=== PATIENT | male | born 1930 | race Caucasian/White ===

== ENCOUNTER 2017-05-25 21:25 | Emergency (ER) | payer MEDICARE ==
[~2017-05-25 21:25] MED LIST: ALPHAGAN P0.1 % OPH; ASA5GR PO; ASAB PO; ASABAYER PO; AZOPT OPH; DEXILANT DR PO; DILT-XR240 MG PO; ISORDIL10 PO; JANTOVEN1 MG PO; JANTOVEN2 MG PO; L20 PO; LIPITOR40 PO; LOM PO; LOP25 PO; LUMIGAN OPH; PACERONE200 MG PO; PR25 PO; PRIN5 PO; SYSTAN1 OP; SYSTANE OP; TOPXL25 PO; VITAMIN B-121000 MC1 SL; XALAT OPH
[2017-05-25 21:55] LABS: HEMATOCRIT 41.2 % (40.0-51.0); HEMOGLOBIN 13.9 g/dL (13.6-17.8); MEAN CORPUS HGB CONC 33.7 g/dL (32.0-36.0); MEAN PLATELET VOLUME 12.2 fL (9.2-13.0); RBC DISTRIBUTION WIDTH 14.3 % (12.0-16.0); RED CELL COUNT 4.63 10/6/uL (4.7-6.1)
[2017-05-25 21:57] LABS: ER CBC TAT 0 Hrs 08 Mins; MANUAL DIFF YES %; WHITE BLOOD CELLS 8.6 10/3/uL (4.5-10.5)
[2017-05-25 22:10] LABS: ALBUMIN 3.4 G/DL (3.5-5.0); ALKALINE PHOSPHATASE 81 U/L (45-117); BUN (BLOOD UREA NITROGEN) 12 MG/DL (6-23); CALCIUM, SERUM 8.5 MG/DL (8.5-10.4); CHLORIDE, SERUM 104 MMOL/L (96-112); CO2 (CARBON DIOXIDE) 26 MMOL/L (24-34); CREATININE 1.14 MG/DL (0.70-1.30); GFR AFRICAN AMERICAN 68 ML/MIN (>=60); GFR NON AFRICAN AMERICAN 59 ML/MIN (>=60); GLOBULIN 3.5 G/DL (2.5-4.1); GLUCOSE, SERUM 111 MG/DL (60-99); POTASSIUM, SERUM 4.2 MMOL/L (3.5-5.3); SGOT(AST) 12 U/L (5-40); SGPT(ALT) 18 U/L (5-65); SODIUM, SERUM 137 MMOL/L (135-148); TOTAL BILIRUBIN 0.6 MG/DL (0-1.2); TOTAL PROTEIN 6.9 G/DL (6.0-8.5)
[2017-05-25 22:22] LABS: INTERNATIONAL NORMAL RATI 2.2 UNITS (-); PARTIAL THROMBO TIME 34.4 SEC (22.5-37.2)
[2017-05-25 22:23] LABS: PROTIME (NOT ORD) 24.6 SEC (12.0-14.5)
[2017-05-25 22:27] LABS: EOSINOPHILS 2 %; EOSINOPHILS ABSOLUTE (CALC) 0.17 10/3/uL (0.0-0.53); ER DIFF TAT 0 Hrs 38 Mins; LYMPHOCYTES 4 %; LYMPHOCYTES ABSOLUTE (CALC) 0.34 10/3/uL (0.67-4.30); MONOCYTES 8 %; MONOCYTES ABSOLUTE (CALC) 0.69 10/3/uL (0.21-1.20); PLATELET ESTIMATE ADQ (ADEQUATE); RBC MORPHOLOGY NORM (NORMAL); SEGMENTED NEUTROPHIL (0) 86 %; TOTAL NUCLEATED CELLS 100
[2017-05-25 22:28] LABS: PLATELET COUNT 130 10/3/uL (150-400)
[2017-05-26] MEDS ORDERED: ASAB PO (05:06)
[2017-05-26] MEDS ORDERED: CORDARONE PO (05:07)
[2017-05-26] MEDS ORDERED: PRILO PO (05:07)
[2017-05-26] MEDS ORDERED: JANTOVEN1 MG PO (05:07)
[2017-05-26] MEDS ORDERED: LIPITOR20 PO (05:08)
[2017-05-26] MEDS ORDERED: COSOPT OPH (05:09)
[2017-05-26] MEDS ORDERED: BRIMONIDINE0.2 % OPH (05:09)
[2017-05-26] MEDS ORDERED: XALAT OPH (05:10)
[2017-05-26] MEDS ORDERED: MIRALAX POWDER1 PKT PO (14:29)
[2017-05-26] MEDS ORDERED: ZOFRAN ODT4 MG PO (14:29)
== END 2017-05-25 23:41 | disposition home or self-care (01) ==
LOC: ER 21:25
PROVIDERS: Nurse Practitioner; Physician Assistant
DX: K59.00 Constipation, unspecified (principal); N13.2 Hydronephrosis with renal and ureteral calculous obstruction; K40.90 Unilateral inguinal hernia, without obstruction or gangrene, not specified as recurrent; Z79.82 Long term (current) use of aspirin; Z79.01 Long term (current) use of anticoagulants; Z79.899 Other long term (current) drug therapy
CPT/HCPCS: 74176; 80053; 81001; 83605; 83690; 85025; 85610; 85730; 96374; 99284; J2405

== ENCOUNTER 2017-05-26 04:02 | Observation (INO) | payer MEDICARE ==
--- NOTE | ~2017-05-26 | DS ---
Discharge Summary [facility] [address] [facility] [address] [place]. [address] NAME: TC WILLIAMSON SR : 32 STATUS : DIS Laney PAT#: [id number] AGE: 86 ADM/REG DATE : 05/26/17 MR#: [id number] REPORT SERV DATE: 05/26/17 DICTATED BY: MIKO MARIA DATE: 05/26/17 REPORT STATUS : Draft TRANSCRIBED BY: MODL DATE: 05/26/17 ADMISSION DATE: 05/26/2017 DISCHARGE DATE: 05/26/2017 DISCHARGE DIAGNOSES: 1. Severe constipation, with colonic obstruction, resolved. 2. Chronic atrial fibrillation. 3. Incidental finding of left renal calculus with mild proximal hydronephrosis, seen by Dr. Prescott from Urology who will follow up the patient as an outpatient in the near future. 4. Left inguinal hernia that was reducible without symptoms. 5. Umbilical hernia that contains fat and a loop of transverse colon without incarceration. SOIL CONSERVATION TECHNICIAN: Dr. Prescott. PROCEDURES: None. HOSPITAL COURSE: This is an 86-year-old gentleman who was admitted to the hospital with severe constipation/obstruction. The patient was admitted clinical dietician of 05/26/2017, and by the time I saw the patient, the patient has already had a bowel movement with relief of his symptoms. In reviewing his CT of the abdomen and pelvis besides [id number] fecal burden, the patient was also incidentally found to have a left kidney stone with associated proximal hydronephrosis, albeit mild. Urology was consulted and Dr. Prescott has seen the patient. Given his normal renal function without any symptoms and only a very mild hydronephrosis, the patient was felt appropriate for outpatient followup. The patient is now being discharged to home with close outpatient followup instructions. DISPOSITION: Home. MEDICATIONS: 1. MiraLAX 17 g p.o. daily scheduled. 2. Zofran 4 mg p.o. one to two tabs q.4 hours p.r.n. for nausea. Otherwise, no changes. FOLLOWUP: 1. Please follow up with PCP in the next one to two weeks. 2. Please follow up with Dr. Prescott as instructed. Total of 25 minutes spent in coordinating this patient's discharge today. DICTATED BY: Miko Maria MD [facility]/NEHEMIAH Discharge Summary [facility] [address] [place]. [address] NAME: TC WILLIAMSON : 32 STATUS : DIS Lane[place] PAT#: [id number] AGE: 86 ADM/REG DATE : 05/26/17 MR#: [id number] REPORT SERV DATE: 05/26/17 DICTATED BY: MIKO MARIA DATE: 05/26/17 REPORT STATUS : Draft TRANSCRIBED BY: MODNii DATE: 05/26/17 Miko Maria MD / [id number] CC: Miko Maria MD
--- NOTE | ~2017-05-26 | HP ---
History And Physical [address] [place]. [address] NAME: TC WILLIAMSON SR : 32 STATUS : ADM Laney [facility]#: [id number] AGE: 86 ADM/REG DATE : 05/26/17 MR#: [id number] REPORT SERV DATE: 05/26/17 DICTATED BY: YESENIA HUSSEIN DATE: 05/26/17 REPORT STATUS : Draft TRANSCRIBED BY: MODL DATE: 05/26/17 DATE OF ADMISSION: 05/26/2017 CHIEF COMPLAINT: An 86-year-old male presenting with severe constipation, now with vomiting. HISTORY OF PRESENT ILLNESS: The patient's history was obtained through careful interview with the patient, coupled with review of [facility] medical records. The patient for the last week has had progressive severe constipation and he states that he has not had a bowel movement in four days now. Just on the evening of admission, he developed nausea and vomiting now. He describes diffuse abdominal pain, particularly in the left lower quadrant with a swollen, cramping, severe quality, 8/10 severity. He has a chronic left inguinal hernia that he states does not bother him too bad and even this evening is not causing any discomfort. No shortness of breath. No palpitations. No chest pain. No light headedness. No dysuria. No fevers or chills. REVIEW OF SYSTEMS: Otherwise, a 14-point review of systems was obtained and was negative. PAST MEDICAL HISTORY: 1. Coronary artery disease, status post CABG. Followed by Dr. Ward. 2. Tissue mitral valve replacement. 3. Hypertension. 4. Large diaphragmatic hernia with bowel involvement into the chest cavity. 5. Left inguinal hernia repair that is quite large. 6. Atrial fibrillation, status post maze, on chronic anticoagulation. 7. Duodenal ulcer. Seen previously by Dr. Modi. 8. Nephrolithiasis. 9. Depression. 10.B12 deficiency. PAST SURGICAL HISTORY: 1. CABG in 2009. 2. Maze in 2009. 3. Tissue mitral valve replacement in 2009. 4. 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 5. Right inguinal hernia repair. 6. Incisional hernia repair. Seen by Dr. Trujillo. History And Physical [address] [address] NAME: TC WILLIAMSON SR : 32 STATUS : ADM [place] PAT#: [id number] AGE: 86 ADM/REG DATE : 05/26/17 MR#: [id number] REPORT SERV DATE: 05/26/17 DICTATED BY: YESENIA HUSSEIN DATE: 05/26/17 REPORT STATUS : Draft TRANSCRIBED BY: NEHEMIAH DATE: 05/26/17 ALLERGIES: NO KNOWN DRUG ALLERGIES. SOCIAL HISTORY: No tobacco abuse. Drinks occasional wine or vodka. Has been a since 2006. Lives with his son now, retired from the railroad. FAMILY HISTORY: Father with brain cancer. Strong family history of heart disease. CURRENT MEDICATIONS: Unknown at this time, but we have requested pharmacy to obtain medication list. PHYSICAL EXAMINATION: VITAL SIGNS: Temperature 97.0, pulse 57, blood pressure 146/70, respiratory rate 18, and O2 saturation 98% on room air. GENERAL: A pleasant, cooperative male, but in evidence of discomfort and distress secondary to vomiting and abdominal pain. HEENT: Pupils equal, round, and reactive to light. No conjunctival pallor. No scleral icterus. Nares are patent. Oropharynx is clear of obstruction. Mildly dry mucous membranes. NECK: Trachea midline. No thyromegaly. LYMPH: No cervical lymphadenopathy. No supraclavicular lymphadenopathy. RESPIRATORY: Clear to auscultation at bases. No wheezes, rales, or rhonchi. Normal respiratory effort. CARDIOVASCULAR: Bradycardic regular rhythm. No murmurs, rubs, or gallops. No extremity edema is appreciated. ABDOMEN: Significant diffuse abdominal discomfort, particularly in the left lower quadrant with guarding, but no rebound effect. A distended abdomen with decreased bowel tones. No hepatosplenomegaly. DERMATOLOGICAL: Warm and dry extremities. No pallor. No cyanosis. PSYCHIATRIC: Normal affect. Good mood. Alert and oriented x3. LABORATORY DATA: White blood count 8.6, hemoglobin 14, hematocrit 41, platelets 130. Sodium 137, potassium 4.2, chloride 104, bicarb 24, BUN 12, creatinine 1.14, glucose 111, lipase 64. Lactic acid 0.9. Glucose 2.2. Liver enzymes within normal limits. STUDIES: CT scan of the abdomen shows fecal stasis, left hydronephrosis that is mild. A large chronic renal pelvic calculus stable, but large diaphragmatic hernia and left inguinal hernia. Both of these uncomplicated. ASSESSMENT AND PLAN: 1. Severe constipation, now with colonic obstruction. Try enemas. May need a GI consult? Has seen Dr. Modi in the past. 2. Atrial fibrillation. Good INR. Check telemetry. 3. Left inguinal hernia reducible without symptoms now. KPL/MODL History And Physical [facility] [address] [place]. [address] NAME: TC WILLIAMSON SR : 32 STATUS : ADM [place] PAT#: [id number] AGE: 86 ADM/REG DATE : 05/26/17 MR#: [id number] REPORT SERV DATE: 05/26/17 DICTATED BY: YESENIA HUSSEIN DATE: 05/26/17 REPORT STATUS : Draft TRANSCRIBED BY: NEHEMIAH DATE: 05/26/17 Yesenia Hussein M.D. / [id number] CC: MD Jorge Buitrago M.D.
[2017-05-26] MEDS ORDERED: ASAB PO (05:06)
[2017-05-26] MEDS ORDERED: JANTOVEN1 MG PO (05:07)
[2017-05-26] MEDS ORDERED: PRILO PO (05:07)
[2017-05-26] MEDS ORDERED: CORDARONE PO (05:07)
[2017-05-26] MEDS ORDERED: LIPITOR20 PO (05:08)
[2017-05-26] MEDS ORDERED: COSOPT OPH (05:09)
[2017-05-26] MEDS ORDERED: BRIMONIDINE0.2 % OPH (05:09)
[2017-05-26] MEDS ORDERED: XALAT OPH (05:10)
[2017-05-26 13:37] LABS: HEMATOCRIT 39.7 % (40.0-51.0); HEMOGLOBIN 13.4 g/dL (13.6-17.8); MEAN CORPUS HGB CONC 33.8 g/dL (32.0-36.0); MEAN CORPUSCULAR HEMOGLOB 29.8 pg (26.0-34.0); MEAN CORPUSCULAR VOLUME 88.4 fL (80-100); MEAN PLATELET VOLUME 12.7 fL (9.2-13.0); PLATELET COUNT 103 10/3/uL (150-400); RBC DISTRIBUTION WIDTH 14.4 % (12.0-16.0); RED CELL COUNT 4.49 10/6/uL (4.7-6.1); WHITE BLOOD CELLS 7.5 10/3/uL (4.5-10.5)
[2017-05-26 13:38] LABS: MANUAL DIFF YES %
[2017-05-26 13:59] LABS: A/G RATIO 0.9 (0.7-1.9); ALBUMIN 3.2 G/DL (3.5-5.0); ALKALINE PHOSPHATASE 77 U/L (45-117); BUN (BLOOD UREA NITROGEN) 11 MG/DL (6-23); CALCIUM, SERUM 7.9 MG/DL (8.5-10.4); CHLORIDE, SERUM 102 MMOL/L (96-112); CO2 (CARBON DIOXIDE) 26 MMOL/L (24-34); CREATININE 1.06 MG/DL (0.70-1.30); GFR AFRICAN AMERICAN 74 ML/MIN (>=60); GFR NON AFRICAN AMERICAN 64 ML/MIN (>=60); GLOBULIN 3.4 G/DL (2.5-4.1); GLUCOSE, SERUM 107 MG/DL (60-99); POTASSIUM, SERUM 3.8 MMOL/L (3.5-5.3); SGOT(AST) 12 U/L (5-40); SGPT(ALT) 18 U/L (5-65); SODIUM, SERUM 135 MMOL/L (135-148); TOTAL BILIRUBIN 0.5 MG/DL (0-1.2); TOTAL PROTEIN 6.6 G/DL (6.0-8.5)
[2017-05-26 14:23] LABS: BAND NEUTROPHILS 4 %; LYMPHOCYTES 6 %; LYMPHOCYTES ABSOLUTE (CALC) 0.45 10/3/uL (0.67-4.30); MONOCYTES 5 %; MONOCYTES ABSOLUTE (CALC) 0.38 10/3/uL (0.21-1.20); NEUTROPHILS ABSOLUTE (CALC) 6.68 10/3/uL (2.02-8.40); SEGMENTED NEUTROPHIL (0) 85 %; TOTAL NUCLEATED CELLS 100
[2017-05-26 14:24] LABS: PLATELET ESTIMATE SLT DEC (ADEQUATE)
[2017-05-26 14:25] LABS: RBC MORPHOLOGY NORM (NORMAL)
[2017-05-26] MEDS ORDERED: MIRALAX POWDER1 PKT PO (14:29)
[2017-05-26] MEDS ORDERED: ZOFRAN ODT4 MG PO (14:29)
== END 2017-05-26 15:30 | disposition home or self-care (01) ==
LOC: ER 04:02 → 4SO 04:45
PROVIDERS: Internal Medicine
DX: N13.2 Hydronephrosis with renal and ureteral calculous obstruction (principal); K42.9 Umbilical hernia without obstruction or gangrene; K40.90 Unilateral inguinal hernia, without obstruction or gangrene, not specified as recurrent; I25.10 Atherosclerotic heart disease of native coronary artery without angina pectoris; I10 Essential (primary) hypertension; I48.2 Chronic atrial fibrillation; F32.9 Major depressive disorder, single episode, unspecified; E53.8 Deficiency of other specified B group vitamins; Z95.1 Presence of aortocoronary bypass graft; Z98.890 Other specified postprocedural states; Z79.899 Other long term (current) drug therapy
CPT/HCPCS: 80053; 82330; 83735; 84443; 85025; 96374; 96376; 99284; A9270-GY; G0378; J2405